=== PATIENT | male | born 1955 | race Caucasian/White ===

== ENCOUNTER 2021-10-09 15:25 | Emergency (ER) | payer MEDICARE, SELFPAY ==
--- NOTE | ~2021-10-09 | XR_ITS ---
EXAMINATION: XR chest 2V EXAM DATE: 10/09/2021 15:57 INDICATION: Cough, Fever; hx of parkinson's; smoker. TECHNIQUE: Frontal and lateral projections of the chest obtained and reviewed. Comparison is made to prior examination from 07/22/2019, 02/02/2010. FINDINGS: Implanted pack device with catheter or lead extending cephalad. Sternotomy wires are prese nt without findings to suggest sternal dehiscence. Cervical hardware. Large right epicardial fat pad unchanged compared to 2009. No confluent consolidation, pneumothorax or pleural effusion suspected. M ild thoracic spondylosis. IMPRESSION: no acute cardiopulmonary findings. Reviewed, dictated and finalized at location A. [facility]
[2021-10-09 15:36] VITALS: BP 115/59; PULSE 93; RESP 20; TEMP 36.8; O2SAT 96
--- NOTE | 2021-10-09 15:47 | ED.GENADULT ---
HPI - General Adult General Chief complaint: Extremity Injury, Upper Stated complaint: Shoulder Pain,Shortness of breath,Fever Source: patient Mode of arrival: ambulatory Limitations: no limitations History of Present Illness HPI narrative: 66 y/o male. PMHx MOSHE, Parkinson's Dx. Presents to ED today with acute complaints of nasal congestion, cough, and upper back pain when he coughs for the past 48 hours. Client reports also a subjective fever at home. Denies EDEN, focal weakness. No chest pain, palpitations, dyspnea, edema. No GI upset. He notes no known ill contacts. He is without additional acute c/o illness upon PE. Related Data Home Medications Medication Instructions Recorded Confirmed carbidopa 25 mg-levodopa 100 mg 1.5 tablet PO TID tablet 06/23/21 10/09/21 tablet clonazepam 0.5 mg tablet 0.5 mg PO BID tablet 06/23/21 10/09/21 safinamide 100 mg tablet 100 mg PO DAILY tablet 06/23/21 10/09/21 Allergies Allergy/AdvReac Type Severity Reaction Status Date / Time bee pollen Allergy Unknown Unknown Verified 10/09/21 15:42 Review of Systems Review of Systems: CONSTITUTIONAL: Positive fever, chills. No sweats. EYES: Denies visual changes, redness, discharge. ENT: Positive rhinorrhea, congestion. No sore throat, otalgia. CARDIOVASCULAR: Denies chest pain, palpitations, edema. RESPIRATORY: Denies dyspnea, wheezing. Positive cough GASTROINTESTINAL: Denies abdominal pain, nausea, vomiting, diarrhea. GENITOURINARY: Denies dysuria, hematuria, abnormal discharge SKIN: Denies rash or itching. MUSCULOSKELETAL: Denies acute back pain, joint pain, or myalgia. NEUROLOGIC: Denies numbness, or focal weakness. PSYCHIATRIC: Denies anxiety or depression. All systems reviewed & are unremarkable except as noted in HPI and below [facility] Past Medical History Medical History BPH w/o urinary obs/LUTS CAD in [place] artery Dyslipidemia Parkinsons disease Prediabetes Family History Family History Other Diabetes mellitus Family history of coronary artery disease Hypertension Social History Social History Smoking status: Current every day smoker Alcohol intake: current Exam Narrative: GENERAL: This is a well-nourished, well-developed adult, in no apparent distress. HEAD: normocephalic, atraumatic. EYES: PERRL. Sclera clear/white. EARS: External ears normal, auditory canals clear and without drainage, TMs normal. NOSE: External nose normal. Positive Rhinorrhea, PND. No obstruction, nares patent. THROAT: Mucous membranes moist, posterior pharynx clear. No exudates. NECK: Neck supple, non-tender without lymphadenopathy, masses or thyromegaly. CARDIOVASCULAR: Regular rate and rhythm without murmurs, gallops, or rubs. RESPIRATORY: Clear to auscultation. Breath sounds equal bilaterally. No wheezes, rales, or rhonchi. GASTROINTESTINAL: Abdomen soft, non-tender, nondistended. Bowel sounds are active. No guarding. SKIN: warm, intact with no suspicious lesions or rash, good texture and turgor. NEURO: Alert, active, and age appropriate. Parkinsonism tremor. No focal neurologic deficits. EXTREMITIES: Negative. Course Course Level of Care: Express Care Visit Vital Signs Vital signs: Vital Signs Temperature 36.8 C 10/09/21 15:36 Pulse Rate 93 10/09/21 15:36 Respiratory Rate 10/09/21 15:36 Blood Pressure 115/59 L 10/09/21 15:36 Pulse Oximetry 96 10/09/21 15:36 Temperature 36.8 C 10/09/21 15:36 Pulse Rate 93 10/09/21 15:36 Respiratory Rate 10/09/21 15:36 Blood Pressure 115/59 L 10/09/21 15:36 Pulse Oximetry 96 10/09/21 15:36 Medical Decision Making [facility] Narrative Medical decision making narrative: -SARS COVID POSITIVE. -Plain film chest imaging reveals no acute cardiopulmonary processes, no ap
== END 2021-10-09 16:29 | disposition home or self-care (01) ==
PROVIDERS: Emergency Provider Nurse Practitioner Adult Health; PCP Family Medicine
DX: U07.1 COVID-19 (principal); G20 Parkinson's disease; I25.10 Atherosclerotic heart disease of native coronary artery without angina pectoris; N40.0 Benign prostatic hyperplasia without lower urinary tract symptoms; E78.5 Hyperlipidemia, unspecified; R73.03 Prediabetes; F17.200 Nicotine dependence, unspecified, uncomplicated; F41.1 Generalized anxiety disorder
CPT/HCPCS: 71046; 87426; 99213; C9803; G0463

== ENCOUNTER 2022-11-19 13:33 | Emergency (ER) | payer MEDICARE, SELFPAY ==
--- NOTE | ~2022-11-19 | XR_ITS ---
XR cervical spine 4-5V 11/19/2022 14:58 Indication: Neck pain Procedure: 5 view cervical spine Comparison: 02/17/2008 Findings: Status post anterior cervical fusion and discectomy at C5-6. No acute fracture, subluxation or dislocation. No prevertebral soft tissue swelling. Odontoid process is normal. Lung apices are normal. There is a right-sided catheter traversing the ne ck. There is mild uncinate hypertrophy at C3-4 and C4-5. Impression: 1: Mild cervical spondylosis with fusion at C5-6. Reviewed, dictated and finalized at location B. [facility] Impression: 1: Mild cervical spondylosis with fusion at C5-6.
[2022-11-19 13:52] VITALS: BP 108/60; PULSE 75; RESP 20; TEMP 36.6; O2SAT 99
--- NOTE | 2022-11-19 14:31 | ED.NECK ---
HPI - Neck Pain/Injury General Chief Complaint: Neck Pain/Injury Stated Complaint: neck pain s/p fall Time Seen by Provider: 11/19/22 14:32 Source: patient and RN notes reviewed Mode of arrival: ambulatory Limitations: no limitations History of Present Illness HPI Narrative: 67 y/o male with hx Parkinson's disease and CAD (CABG) presented for c/o neck pain after fall at home yesterday. Endorses he felt like he 'was going to pass out' so he squatted but 'gravity took over' causing him to fall to the ground. He struck the right side of the head/face on vinyl reece. Denies LOC. States in the middle of the night he developed neck pain at the base of the skull with pain on both sides of the neck. Currently rates pain 4/10. Pain worse when turning head to the side and looking down. Decreased ROM when turning head to left. Took Tylenol for pain. Patient has plate and screws in the neck, and a brain stimulator in place for Parkinson's and reports med compliance. Uses a cane with walking. Denies numbness, tingling or weakness of the arms, denies vision changes or headache, dizziness, nausea, or vomiting since the fall. Related Data Home Medications Medication Instructions Recorded Confirmed carbidopa 25 mg-levodopa 100 mg 1.5 tablet PO TID 06/23/21 11/19/22 tablet clonazepam 0.5 mg tablet 0.5 mg PO BID 06/23/21 11/19/22 safinamide 100 mg tablet 100 mg PO DAILY 06/23/21 11/19/22 Allergies Allergy/AdvReac Type Severity Reaction Status Date / Time bee pollen Allergy Unknown Unknown Verified 11/19/22 14:02 Review of Systems Review of Systems: CONSTITUTIONAL: Denies body aches, fever, chills, or sweats. EYES: Denies visual changes, redness, or discharge. ENT: Denies rhinorrhea, or epistaxis, congestion, sore throat, or otalgia. CARDIOVASCULAR: Denies chest pain, palpitations, or edema. RESPIRATORY: Denies cough or dyspnea. GASTROINTESTINAL: Denies abdominal pain, nausea, vomiting, or diarrhea. GENITOURINARY: Denies incontinence, dysuria or hematuria. SKIN: Denies rash, itching, or wounds. MUSCULOSKELETAL: per HPI NEUROLOGIC: denies numbness, tingling, or weakness All systems reviewed & are unremarkable except as noted in HPI and below PMF[facility] Past Medical History Medical History BPH w/o urinary obs/LUTS CAD in [place] artery Dyslipidemia Parkinsons disease Prediabetes Family History Family History Other Diabetes mellitus Family history of coronary artery disease Hypertension Social History Social History Smoking status: Current every day smoker Alcohol intake: current Comments At time of signature, I have reviewed and agree with nursing past medical, surgical, social and family history unless otherwise noted. Please see nursing chart for further information. There is no relevant family history pertinent to the presenting complaint Exam Narrative: GENERAL: Well-appearing, appears older than stated age HEAD: Normocephalic, atraumatic, nontender; right temporal brain stim EYES: PERRLA, EOMI. ENT: Mucous membranes pink and moist. No rhinorrhea. TMs normal bilaterally. NECK: Limited ROM turning head to left, endorses more pain on left upper neck with movement; paraspinal tenderness L>R at c3-4, no VPT. CHEST: No respiratory distress. Clear to auscultation. HEART: Regular rate and rhythm. No murmur appreciated. Normal peripheral pulses. EXTREMITIES: Normal range of motion for pt. SKIN: Warm, dry, no rash. Capillary refill normal. Normal skin turgor. NEURO:No focal deficits. Alert and oriented x3. Finger to nose intact bilaterally. EOMs intact without nystagmus. No facial droop/asymmetry noted bilaterally. Grimace intact. Intact sensation in face. Hearing intact bilaterally. Shoulder shrug intact. Strength 5/5 bilateral upper extremities.
== END 2022-11-19 15:27 | disposition left against medical advice (07) ==
PROVIDERS: Emergency Provider Nurse Practitioner Family; PCP Family Medicine
DX: M54.2 Cervicalgia (principal); F17.200 Nicotine dependence, unspecified, uncomplicated; N40.0 Benign prostatic hyperplasia without lower urinary tract symptoms; E78.5 Hyperlipidemia, unspecified; G20 Parkinson's disease; R73.03 Prediabetes; I25.10 Atherosclerotic heart disease of native coronary artery without angina pectoris
CPT/HCPCS: 72050; 99213; G0463; L0140

== ENCOUNTER 2023-01-10 11:43 | Outpatient (CLI) | payer MEDICARE, SELFPAY ==
[2023-01-10 18:44] LABS: Kit Draw Collected
== END 2023-01-10 11:44 | disposition home or self-care (01) ==
LOC: ANHGOSHLAB 11:45
PROVIDERS: PCP Family Medicine; Visit Provider Family Medicine
DX: E53.8 Deficiency of other specified B group vitamins (principal); E55.9 Vitamin D deficiency, unspecified; E78.5 Hyperlipidemia, unspecified; G20 Parkinson's disease; I25.10 Atherosclerotic heart disease of native coronary artery without angina pectoris; R41.89 Other symptoms and signs involving cognitive functions and awareness; R73.03 Prediabetes; Z12.5 Encounter for screening for malignant neoplasm of prostate
CPT/HCPCS: 36415

== ENCOUNTER 2023-04-13 15:06 | Emergency (ER) | payer MEDICARE, SELFPAY ==
--- NOTE | ~2023-04-13 | XR_ITS ---
EXAMINATION: XR shoulder RT min 2V DATE: 04/13/2023 16:39 INDICATION: Right shoulder pain. Fall. TECHNIQUE: 4 views of right shoulder were obtained. COMPARISON: None. FINDINGS: Bone alignment is normal. No fracture. There is mild osteoarthritis of acromioclavicular peter int and glenohumeral joint. There are changes of anterior fusion procedure in cervical spine. Median sternotomy wires and mediastinal surgical clips are seen, likely from prior coronary artery bypass gr afting. IMPRESSION: 1. Mild polyarticular osteoarthritis. Reviewed, dictated and finalized at location E.
--- NOTE | ~2023-04-13 | CT_ITS ---
EXAMINATION: CT brain wo con DATE: 04/13/2023 16:34 INDICATION: Head injury. Neck pain. TECHNIQUE: Computed tomography (CT) of the head was performed without intravenous contrast. The mA wa s adjusted according to patient size. Iterative reconstruction technique was employed. The dose-lengt h product was 605.33 mGy-cm. COMPARISON: Brain MRI 02/16/2016 FINDINGS: There is a right-sided electrode with tip in the thalamus. There is no intracranial hemorrh age, acute infarction, or abnormal intracranial mass lesion. The ventricles are normal in size. The o rbits are normal. There is mild mucosal thickening in the ethmoid sinuses. The mastoid air cells are normal. IMPRESSION: 1. No acute intracranial pathology. Reviewed, dictated and finalized at location E.
--- NOTE | ~2023-04-13 | XR_ITS ---
EXAMINATION: XR chest 1V DATE: 04/13/2023 16:39 INDICATION: Right lateral chest pain. Fall. TECHNIQUE: A single frontal view of the chest was obtained. COMPARISON: Chest 2 views 10/09/2021 FINDINGS: There is mild atelectasis in the lower lung zones. No pleural effusion or pneumothorax. The heart size is normal. Median sternotomy wires and mediastinal surgical clips are seen, likely from p rior coronary artery bypass grafting. There are changes of anterior fusion procedures cervical spine. A deep brain stimulator overlies left chest IMPRESSION: 1. Mild atelectasis in the lower lung zones. Reviewed, dictated and finalized at location E.
--- NOTE | ~2023-04-13 | CT_ITS ---
EXAMINATION: CT cervical spine wo con DATE: 04/13/2023 16:34 INDICATION: Neck pain. Fall. TECHNIQUE: Computed tomography (CT) of the cervical spine was performed without intravenous contrast. Automated exposure control and iterative reconstruction technique were employed. The dose-length pro duct was 292.92 mGy-cm. COMPARISON: Cervical spine radiographs 11/19/2022 FINDINGS: There is hypolordosis of cervical spine. There is 3 mm dextrocurvature of cervical spine. V ertebral body heights are normal. There are changes of anterior fusion procedure at C5-C6 with interb tosin bone graft and anterior plate and screws. There is moderately decreased disc height at C3-C4 and mildly decreased disc height at C4-C5 and C6-C7. The following disc levels are specifically discussed : C2-C3: There is no uncovertebral joint osteoarthritis. There is moderate right and mild left facet peter int osteoarthritis. There is no neural foraminal stenosis. There is no central canal stenosis. C3-C4: There is moderate right and severe left uncovertebral joint osteoarthritis. There is mild righ t and severe left facet joint osteoarthritis. There is mild right and moderate left neural foraminal stenosis. There is mild central canal stenosis. C4-C5: There is severe right and mild left uncovertebral joint osteoarthritis. There is mild right an d severe left facet joint osteoarthritis. There is mild bilateral neural foraminal stenosis. There is mild central canal stenosis. C5-C6: There is no uncovertebral joint hypertrophy. There is no facet joint osteoarthritis. There is no neural foraminal stenosis. There is no central canal stenosis. C6-C7: There is no uncovertebral joint osteoarthritis. There is mild bilateral facet joint osteoarthr itis. There is no neural foraminal stenosis. There is mild central canal stenosis. C7-T1: There is no uncovertebral joint osteoarthritis. There is mild bilateral facet joint osteoarthr itis. There is no neural foraminal stenosis. There is no central canal stenosis. IMPRESSION: 1. No fracture. 2. Anterior fusion procedure at C5-C6. 3. Moderate cervical spondylosis. Reviewed, dictated and finalized at location E.
[2023-04-13 15:15] VITALS: BP 113/80; PULSE 77; RESP 17; TEMP 36.5; O2SAT 96
--- NOTE | 2023-04-13 16:26 | ED.GENADULT ---
HPI - General Adult General Chief complaint: Extremity Injury, Upper Stated complaint: mx falls-R shlder inj Time Seen by Provider: 04/13/23 15:37 History of Present Illness HPI narrative: 67-year-old male with history of Parkinson's disease presenting to the emergency department for evaluation of right shoulder pain. Patient reports approximately 2 weeks ago he had a ground-level fall and injured his left shoulder and that this only hurt for a few days. Patient states he did strike his head during that fall. Patient reports a week later he had a another fall due to what he describes as orthostatic hypotension, he stood up quickly had onset of lightheadedness and fell to the ground and struck his head. Patient reports over the last few days he has had increased muscular right shoulder pain and patient denies any falls since last week. Patient has taken Tylenol for pain control but this has not significantly helped him. Related Data Home Medications Medication Instructions Recorded Confirmed carbidopa 25 mg-levodopa 100 mg 1.5 tablet PO TID 06/23/21 01/24/23 tablet clonazepam 0.5 mg tablet 0.5 mg PO BID 06/23/21 01/24/23 safinamide 100 mg tablet 100 mg PO HS 06/23/21 01/24/23 Allergies Allergy/AdvReac Type Severity Reaction Status Date / Time bee pollen Allergy Unknown Unknown Verified 04/13/23 15:17 Review of Systems Review of Systems: All systems reviewed & are unremarkable except as noted in HPI and below PMFSH Past Medical History Medical History BPH w/o urinary obs/LUTS CAD in [place] artery COVID-19 (~09/2021) Dyslipidemia Parkinsons disease Prediabetes Vitamin D deficiency Surgical History Surgical History History of cervical spinal surgery (~2006) History of coronary artery bypass graft (~2009) History of elbow surgery (~1999) right elbow surgery for ruptured tendon repair History of foot surgery (~2005) Right for bone spur excision History of tonsillectomy (~1959) S/P deep brain stimulator placement (~2018) Family History Family History Other Diabetes mellitus Family history of coronary artery disease Hypertension Social History Social History Smoking status: Current every day smoker Tobacco type: cigarettes Alcohol intake: current Alcohol use details: seldom Substance use: never Substance use type: does not use Lack of Transportation: YES Lack of Food: Never True Current Housing: I Have Housing Concerned About Future Housing: No Difficulty Paying Gas/Electric Bills: No Difficulty Paying for Meds: No Currently Unemployed: No Education: Trade/Vocational Certificate Difficulty w/ Childcare or Family Care: No Living arrangements: with family Occupation/Education: retired Gender identity (if verbalized by the patient): Male Agree to blood products: Yes Exam Narrative: APPEARANCE: Well appearing, no pain, no distress, well-nourished. HEAD: normocephalic, atraumatic. EYES: PERRLA/EOMI, conjunctivae clear. NOSE: Normal no drainage EARS:TMS clear with good light reflex. THROAT: Pharynx clear, no exudate. NECK: Supple. No adenopathy, no masses. RESPIRATORY: Airway patent, respirations nonlabored. Clear to auscultation bilaterally, no rales, rhonchi, wheezing. CARDIOVASCULAR: Regular rate and rhythm without murmurs rubs or gallops. ABDOMINAL: Soft, nontender, nondistended, normal bowel sounds MUSCULOSKELETAL: Reproducible muscular tenderness along the right scapula NEURO: Alert. Cranial nerves II through XII intact. Grossly intact SKIN: Warm, dry. Normal Color Course Course Emergency Course: 67-year-old male presented the ED for evaluation of right shoulder pain. X-rays were negative for acute fracture. CT head and ne
[2023-04-13] MEDS: KETOROLAC 15 MG/ML VIAL (*BKC) IV PUSH (16:54)
[2023-04-13] MEDS: CYCLOBENZAPRINE HCL 10 MG TABLET PO (16:54)
[2023-04-13 18:00] VITALS: BP 108/63; PULSE 69; O2SAT 99
== END 2023-04-13 19:07 | disposition home or self-care (01) ==
PROVIDERS: Emergency Provider Emergency Medicine; PCP Family Medicine
DX: M25.511 Pain in right shoulder (principal); I25.10 Atherosclerotic heart disease of native coronary artery without angina pectoris; E78.5 Hyperlipidemia, unspecified; G20 Parkinson's disease; F17.210 Nicotine dependence, cigarettes, uncomplicated
CPT/HCPCS: 70450; 71045; 72125; 73030; 96374; 99284; A9270; J1885

== ENCOUNTER 2023-04-17 15:25 | Emergency (ER) | payer MEDICARE, SELFPAY ==
--- NOTE | ~2023-04-17 | CT_ITS ---
EXAMINATION: CT cervical spine wo con DATE: 04/17/2023 16:10 INDICATION: Neck injury. TECHNIQUE: Computed tomography (CT) of the cervical spine was performed without intravenous contrast. Automated exposure control and iterative reconstruction technique were employed. The dose-length pro duct was 439.75 mGy-cm. COMPARISON: Cervical spine CT 04/13/2023 FINDINGS: There is hypolordosis of cervical spine. There is 3 mm dextrocurvature of cervical spine. V ertebral body heights are normal. There are changes of anterior fusion procedure at C5-C6 with interb tosin bone graft and anterior plate and screws. There is moderately decreased disc height at C3-C4 and mildly decreased disc height at C4-C5 and C6-C7. The following disc levels are specifically discussed : C2-C3: There is no uncovertebral joint osteoarthritis. There is moderate right and mild left facet peter int osteoarthritis. There is no neural foraminal stenosis. There is no central canal stenosis. C3-C4: There is moderate right and severe left uncovertebral joint osteoarthritis. There is mild righ t and severe left facet joint osteoarthritis. There is mild right and moderate left neural foraminal stenosis. There is mild central canal stenosis. C4-C5: There is severe right and mild left uncovertebral joint osteoarthritis. There is mild right an d severe left facet joint osteoarthritis. There is mild bilateral neural foraminal stenosis. There is mild central canal stenosis. C5-C6: There is no uncovertebral joint hypertrophy. There is no facet joint osteoarthritis. There is no neural foraminal stenosis. There is no central canal stenosis. C6-C7: There is no uncovertebral joint osteoarthritis. There is mild bilateral facet joint osteoarthr itis. There is no neural foraminal stenosis. There is mild central canal stenosis. C7-T1: There is no uncovertebral joint osteoarthritis. There is mild bilateral facet joint osteoarthr itis. There is no neural foraminal stenosis. There is no central canal stenosis. IMPRESSION: 1. No fracture. 2. Anterior fusion procedure at C5-C6. 3. Moderate cervical spondylosis. Reviewed, dictated and finalized at location A.
--- NOTE | ~2023-04-17 | XR_ITS ---
XR knee LT 3V DATE: 04/17/2023 16:22 INDICATION: Ground-level fall. Left knee injury, pain TECHNIQUE: 3 views including crosstable lateral COMPARISON: None FINDINGS: No fracture or dislocation or joint effusion. No periosteal reaction or bone destruction. N o radiopaque intra-articular loose body or chondrocalcinosis. Joint spaces are well preserved. Surgical clips are along the medial aspect of the upper and lower leg. Arterial calcifications. IMPRESSION: No fracture, dislocation or joint effusion Reviewed, dictated and finalized at location B.
--- NOTE | ~2023-04-17 | XR_ITS ---
EXAMINATION: XR clavicle LT DATE: 04/17/2023 16:22 INDICATION: Left clavicle pain. TECHNIQUE: 2 views of left clavicle were obtained. COMPARISON: Left shoulder radiograph 03/08/2006 FINDINGS: There is a comminuted fracture of distal left clavicle. The main distal fracture fragment d emonstrates near-anatomic alignment. There is mild osteoarthritis of acromioclavicular joint. An elec tronic device overlies left chest. Median sternotomy wires and mediastinal surgical clips are seen, l ikely from prior coronary artery bypass grafting. There are changes of anterior fusion procedure in c ervical spine. IMPRESSION: 1. Comminuted fracture of distal left clavicle. Reviewed, dictated and finalized at location A.
[2023-04-17 15:32] VITALS: BP 137/100; PULSE 83; RESP 19; TEMP 37.1; O2SAT 98
[2023-04-17] MEDS: HYDROcodone/acetaminophen (*CRX) 5-325 MG TABLET 1 TAB PO (16:24)
--- NOTE | 2023-04-17 17:37 | ED.FALL ---
HPI - Fall General Chief Complaint: Fall Stated Complaint: fall Time Seen by Provider: 04/17/23 15:46 History of Present Illness HPI Narrative: Patient is a 67-year-old male who presents ER status post fall. Reports he was walking when he stepped his toe falling forwards. He did not strike his head or lose consciousness. He fell on his left side injuring his shoulder as well as his knee and ankle. He was not walking with a cane though it has been recommended he should. Denies any acute injury. No additional concerns. Related Data Home Medications Medication Instructions Recorded Confirmed carbidopa 25 mg-levodopa 100 mg 1.5 tablet PO TID 06/23/21 01/24/23 tablet clonazepam 0.5 mg tablet 0.5 mg PO BID 06/23/21 01/24/23 safinamide 100 mg tablet 100 mg PO HS 06/23/21 01/24/23 Allergies Allergy/AdvReac Type Severity Reaction Status Date / Time bee pollen Allergy Unknown Unknown Verified 04/13/23 15:17 [facility] Past Medical History Medical History BPH w/o urinary obs/LUTS CAD in [place] artery COVID-19 (~09/2021) Dyslipidemia Parkinsons disease Prediabetes Vitamin D deficiency Surgical History Surgical History History of cervical spinal surgery (~2006) History of coronary artery bypass graft (~2009) History of elbow surgery (~1999) right elbow surgery for ruptured tendon repair History of foot surgery (~2005) Right for bone spur excision History of tonsillectomy (~1959) S/P deep brain stimulator placement (~2018) Family History Family History Other Diabetes mellitus Family history of coronary artery disease Hypertension Social History Social History Smoking status: Current every day smoker Tobacco type: cigarettes Alcohol intake: current Alcohol use details: seldom Substance use: never Substance use type: does not use Lack of Transportation: YES Lack of Food: Never True Current Housing: I Have Housing Concerned About Future Housing: No Difficulty Paying Gas/Electric Bills: No Difficulty Paying for Meds: No Currently Unemployed: No Education: Trade/Vocational Certificate Difficulty w/ Childcare or Family Care: No Living arrangements: with family Occupation/Education: retired Gender identity (if verbalized by the patient): Male Agree to blood products: Yes Exam Narrative: GENERAL: Well-appearing, well-nourished, and in no acute distress. HEAD: Normocephalic, atraumatic. EYES: PERRL and EOMI. ENT: Mucous membranes moist. NECK: Supple. Mild tenderness left paraspinal muscular region extending into the trapezius on the left side. CHEST: Clear to auscultation. No respiratory distress. Tender palpation over the clavicle laterally. HEART: Regular rate and rhythm. Normal peripheral pulses. ABDOMEN: Soft, nontender, nondistended. EXTREMITIES: Normal range of motion. No edema. SKIN: Warm, dry, no rash. Abrasion of the left knee and ankle. NEURO: Alert and oriented x3. PSYCH: Normal mood and affect. Course Course Emergency Course: Patient resting comfortably. Informed of results. Will be placed in a sling for comfort. Discharge home. Vital Signs Vital signs: Vital Signs Temperature 98.7 F 04/17/23 15:32 Pulse Rate 83 04/17/23 15:32 Respiratory Rate 04/17/23 15:32 Blood Pressure 137/100 H 04/17/23 15:32 Pulse Oximetry 98 04/17/23 15:32 Oxygen Delivery Room Air 04/17/23 15:32 Temperature 98.7 F 04/17/23 15:32 Pulse Rate 83 04/17/23 15:32 Respiratory Rate 04/17/23 15:32 Blood Pressure 137/100 H 04/17/23 15:32 Pulse Oximetry 98 04/17/23 15:32 Oxygen Delivery Room Air 04/17/23 15:32 Discharge Plan Discharge Clinical Impression: Clavicle fracture Patient Dispositi
== END 2023-04-17 17:59 | disposition home or self-care (01) ==
PROVIDERS: Emergency Provider Emergency Medicine; PCP Family Medicine
DX: S42.032A Displaced fracture of lateral end of left clavicle, initial encounter for closed fracture (principal); I25.10 Atherosclerotic heart disease of native coronary artery without angina pectoris; G20 Parkinson's disease; E78.5 Hyperlipidemia, unspecified; N40.0 Benign prostatic hyperplasia without lower urinary tract symptoms; R73.03 Prediabetes; E55.9 Vitamin D deficiency, unspecified; F17.210 Nicotine dependence, cigarettes, uncomplicated; Z95.1 Presence of aortocoronary bypass graft; Z96.82 Presence of neurostimulator; Z86.16 Personal history of COVID-19; W10.9XXA Fall (on) (from) unspecified stairs and steps, initial encounter
CPT/HCPCS: 72125; 73000; 73562; 99284; A4565; A9270

== ENCOUNTER → 2023-05-28 10:49 | Outpatient (CLI) | payer MEDICARE, SELFPAY ==
--- NOTE | ~2023-05-28 | XR_ITS ---
XR clavicle LT DATE: 05/28/2023 11:09 INDICATION: Follow-up of clavicle fracture TECHNIQUE: AP and angled AP views COMPARISON: 04/17/2023 left clavicle FINDINGS: Mildly comminuted fracture of the lateral aspect of the left clavicle is noted with mild la teral displacement of the lateral fragment compared to 04/17/2023. No healing new bone formation is id entified radiographically. Normal alignment at the acromioclavicular and glenohumeral joints. Status post lower anterior cervical spine surgical fusion. Status post sternotomy. IMPRESSION: Minimally displaced lateral left clavicle fracture without radiographically detectable he aling new bone formation Reviewed, dictated and finalized at location L. IMPRESSION: Minimally displaced lateral left clavicle fracture without radiogra phically detectable healing new bone formation
== END ==
PROVIDERS: PCP Family Medicine; Visit Provider Nurse Practitioner Family
DX: S42.032D Displaced fracture of lateral end of left clavicle, subsequent encounter for fracture with routine healing (principal); T14.90XD Injury, unspecified, subsequent encounter
CPT/HCPCS: 73000

== ENCOUNTER 2023-07-10 09:59 | Outpatient (CLI) | payer MEDICARE, SELFPAY ==
[2023-07-10 20:00] LABS: Alanine Aminotransferase 7 U/L (6-50); Albumin Level 4.1 g/dL (3.5-5.1); Alkaline Phosphatase 79 U/L (38-126); Anion Gap 4 mmol/L (8-16); Aspartate Amino Transferase 27 U/L (17-59); Bilirubin,Total 0.7 mg/dL (0.2-1.3); Blood Urea Nitrogen 23 mg/dL (9-20); Calcium 9.2 mg/dL (8.4-10.2); Carbon Dioxide 33 mmol/L (22-30); Chloride 101 mmol/L (98-107); Estimated Glomerular Filt Rate > 60; Glucose 112 mg/dL (65-110); Potassium 4.3 mmol/L (3.4-5.0); Sodium 138 mmol/L (137-145)
[2023-07-10 21:56] LABS: Hemoglobin A1C 5.5 % (<5.7)
== END 2023-07-10 10:00 | disposition home or self-care (01) ==
PROVIDERS: PCP Family Medicine; Visit Provider Family Medicine
DX: I25.10 Atherosclerotic heart disease of native coronary artery without angina pectoris (principal); R73.03 Prediabetes; I10 Essential (primary) hypertension; G20.A1 Parkinson's disease without dyskinesia, without mention of fluctuations
CPT/HCPCS: 36415; 80053; 83036

== ENCOUNTER 2024-01-03 07:54 | Outpatient (CLI) | payer MEDICARE, SELFPAY ==
--- NOTE | ~2024-01-03 | CT_ITS ---
EXAMINATION: CT lung screening DATE: 01/03/2024 08:17 INDICATION: Z87.891 - Personal history of nicotine dependence TECHNIQUE: Computed tomography (CT) of the chest was performed without intravenous contrast. Addition al 3D reconstructions utilizing coronal maximum intensity projection (MIP) were performed. Automated exposure control and iterative reconstruction technique were employed. The dose-length product was 82 .29 mGy-cm. COMPARISON: None FINDINGS: Mild discoid atelectasis in lingula. Reticular pattern of mild dependent atelectasis in bilateral low er lobes. Couple small calcified nodules in the bilateral upper lobes along with calcified right christine r and mediastinal lymph nodes and scattered splenic calcifications, all consistent with old granuloma tous disease. No other suspicious pulmonary nodules, pneumonia, pulmonary edema or other pulmonary in filtrates. Heart size is normal. Atherosclerotic coronary artery calcifications. Median sternotomy an d change of prior coronary artery bypass grafting. No pathologically enlarged thoracic lymphadenopath y. Likely vagal stimulator the left pectoral region with lead extending cephalad into the anterior ri ght neck and beyond the cephalad margin of the field of imaging. Mild bilateral gynecomastia. Mild th oracic spondylosis. IMPRESSION: 1. Lung-RADS category 1: Negative. Continue annual screening with noncontrast low-dose chest CT in 12 months. Reviewed, dictated and finalized at location A. IMPRESSION: 1. Lung-RADS category 1: Negative. Continue annual screening with noncontrast l ow-dose chest CT in 12 months.
--- NOTE | ~2024-01-03 | US_ITS ---
EXAMINATION: US aorta [facility] DATE: 01/03/2024 08:43 INDICATION: Abdominal aortic aneurysm screening TECHNIQUE: Grayscale, color Doppler, and pulsed Doppler images of the aorta and common iliac arteries were obtained. COMPARISON: None. FINDINGS: The proximal aorta measures 1.7 cm. The mid aorta measures 1.8 cm. The distal aorta measures 1.8 cm. The bilateral common iliac arteries are obscured by shadowing bowel gas. IMPRESSION: 1. Normal caliber abdominal aorta. Reviewed, dictated and finalized at location A.
== END 2024-01-03 07:55 ==
LOC: GOSHIMG 07:54
PROVIDERS: PCP Family Medicine; Visit Provider Family Medicine
DX: Z12.2 Encounter for screening for malignant neoplasm of respiratory organs (principal); Z87.891 Personal history of nicotine dependence; Z13.6 Encounter for screening for cardiovascular disorders
CPT/HCPCS: 71271; 76706

== ENCOUNTER 2024-01-03 08:19 | Outpatient (CLI) | payer MEDICARE, SELFPAY ==
[2024-01-03 13:26] LABS: Basophils Absolute Auto 0.1 K/mm3 (0.0-0.1); Basophils Percent Auto 0.9 % (0.2-1.2); Eosinophils Absolute Auto 0.3 K/mm3 (0-0.3); Eosinophils Percent Auto 2.9 % (0-4.4); Hematocrit 50.7 % (42.0-52.0); Hemoglobin 16.1 g/dL (14.0-18.0); Immature Granulocyte Absolute 0.04 K/mm3 (0.00-0.031); Immature Granulocyte Percent A 0.4 % (0-0.5); Lymphocytes Absolute Auto 3.12 K/mm3 (0.9-3.2); Lymphocytes Percent Auto 34.5 % (18.3-44.2); Mean Corpuscular HGB Conc 31.8 g/dl (32-36); Mean Corpuscular Hemoglobin 32.4 pg (26-34); Mean Platelet Volume 12.9 fl (7.4-10.4); Monocytes Absolute Auto 0.7 K/mm3 (0.1-0.6); Monocytes Percent Auto 7.8 % (2.6-8.5); Neutrophils Absolute Auto 4.8 K/mm3 (1.3-6.7); Neutrophils Percent Auto 53.5 % (45.5-73.1); Platelet Count Result 153 k/mm3 (150-375); Red Blood Count 4.97 M/mm3 (4.6-6.20); White Blood Count 9.1 K/mm3 (4.5-10.0)
[2024-01-03 13:37] LABS: Alanine Aminotransferase 7 U/L (6-50); Albumin Level 4.2 g/dL (3.5-5.1); Alkaline Phosphatase 82 U/L (38-126); Anion Gap 6 mmol/L (4-12); Aspartate Amino Transferase 46 U/L (17-59); Bilirubin,Total 0.5 mg/dL (0.2-1.3); Blood Urea Nitrogen 27 mg/dL (9-20); Calcium 9.6 mg/dL (8.4-10.2); Carbon Dioxide 31 mmol/L (22-30); Chloride 102 mmol/L (98-107); Cholesterol 121 mg/dL (0-200); Estimated Glomerular Filt Rate 60; Glucose 102 mg/dL (65-110); HDL Direct 37 mg/dL; Potassium 4.1 mmol/L (3.4-5.0); Sodium 139 mmol/L (137-145); Triglycerides 43 mg/dL (<150)
[2024-01-03 13:47] LABS: LDL Cholesterol Direct 77 mg/dL
[2024-01-03 13:59] LABS: Hemoglobin A1C 5.6 % (<5.7)
[2024-01-03 14:00] LABS: Prostate Specific Antigen 0.8 ng/mL (< OR = 4.0)
[2024-01-03 14:06] LABS: Atypical Lymphocytes Present; Platelet Estimate Adequate (Adequate); Schistocytes None Seen
[2024-01-03 14:50] LABS: Vitamin D 25 Hydroxy 72.7 ng/mL
== END 2024-01-03 08:20 | disposition home or self-care (01) ==
LOC: ANHGOSHLAB 08:20
PROVIDERS: PCP Family Medicine; Visit Provider Family Medicine
DX: G20.B1 Parkinson's disease with dyskinesia, without mention of fluctuations (principal); E78.5 Hyperlipidemia, unspecified; I10 Essential (primary) hypertension; R73.03 Prediabetes; Z12.5 Encounter for screening for malignant neoplasm of prostate; E53.8 Deficiency of other specified B group vitamins; E55.9 Vitamin D deficiency, unspecified
CPT/HCPCS: 36415; 80053; 80061; 82306; 82607; 83036; 84153; 84443; 85025; G0103

== ENCOUNTER 2024-06-15 10:00 | Outpatient (CLI) | payer MEDICARE, SELFPAY ==
[2024-06-15 13:16] LABS: Alanine Aminotransferase 6 U/L (6-50); Alkaline Phosphatase 93 U/L (38-126); Anion Gap 7 mmol/L (4-12); Aspartate Amino Transferase 39 U/L (17-59); Bilirubin,Total 0.6 mg/dL (0.2-1.3); Blood Urea Nitrogen 24 mg/dL (9-20); Calcium 9.1 mg/dL (8.4-10.2); Carbon Dioxide 33 mmol/L (22-30); Chloride 101 mmol/L (98-107); Estimated Glomerular Filt Rate > 60; Glucose 106 mg/dL (65-110); Potassium 4.7 mmol/L (3.4-5.0); Sodium 141 mmol/L (137-145)
[2024-06-15 13:29] LABS: Vitamin D 25 Hydroxy 67.7 ng/mL
[2024-06-15 19:53] LABS: Hemoglobin A1C 5.9 % (<5.7)
== END 2024-06-15 10:01 | disposition home or self-care (01) ==
PROVIDERS: PCP Family Medicine; Visit Provider Family Medicine
DX: R73.9 Hyperglycemia, unspecified (principal); I10 Essential (primary) hypertension; E55.9 Vitamin D deficiency, unspecified
CPT/HCPCS: 36415; 80053; 82306; 83036

== ENCOUNTER 2024-12-31 13:52 | Outpatient (CLI) | payer MEDICARE, SELFPAY ==
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
--- OUTSIDE RECORDS SUMMARY | 2024-12-31 14:15 | XMS_ITS | Encounter Summary ---
Author Organization [facility] Address [address] [place] [address] Care Team Providers Care Oral Surgery Assistant Name Role Phone Pato Alexander MD Primary Care Provider Reason for Visit * Reason Onset Date Comments MEDICATION REFILL 11/14/2023 Encounter Details Date Type Department Care Team (Late st Contact Info) Description 11/14/2023 Refill [facility] - Neurology [address] [place] [phone] Ladarius Lion MD MEDICATION REFILL Social History Tobacco Use Types Packs/Day Years Used Date Smoking Tobacco: Former Cigarettes Q uit: 06/02/2018 Smokeless Tobacco: Never Alcohol Use Standard Drinks/Week Comments Yes 0 (1 standard drink = 0.6 oz pur e alcohol) Social Sex and Gender Information Value Date Recorded Sex Assigned at Not on file Gender Identity Not on file Sexual Orientation Not on file documented as of this encounter Functional Status Functional Status Response Date of Assess ment Is person deaf or have serious hearing difficult y? No 06/18/2019 Is person blind or have serious difficulty seein g? No 06/18/2019 Does person have serious dif ficulty walking/climbing stairs? No 06/18/2019 Does person have difficulty dressing/bathing? No 06/18/2019 Does person have difficulty doing errands alone? No 06/18/2019 Cognitive Status Response Date of Assessm ent Does person have difficulty concentrating/remembering/making decisions? No 06/18/2019 documented as of this encounter Miscellaneous Notes * Telephone Encounter - Levy Quintana MA - 11/14/2023 3:16 PM CST Refill Request Aureliano Lombardi GIOVANNA: 07/03/2023Jul due: NOV date: 03/10/2024 Rivastigmine 1.5 MG capsule LRF: 07/03/2023 Quantity dispensed: 60 capsules (patient takes 2 capsules daily) # refills: 3 Allergies: No Known Allergies Pended Medication Order: Requested Prescriptions Pending Prescriptions Disp Refills ??? rivastigmine (Exelon) 1.5 MG capsule 60 capsule 3 Sig: Take 1 (one) capsule by mouth 2 times daily with morning and evening meal Reasons: Dementia Associated with Parkinson's Disease OGRAPHS CURATOR documented in this encounter Plan of Treatment Upcoming Encounters Date Type Department Care Team (Late st Contact Info) Description 03/18/2025 1:00 PM CDT Office Visit [facility] - Neurology [address] [place] [address], [facility] [place] [address] Sabrina Jewell APRN-HIGH SCHOOL PROFESSIONAL [address] [place] [address] [place] [address] documented as of this encounter Visit Diagnoses Not on filedocumented in this encounter Care Teams Oral Surgery Assistant Relationship Specialty Start Date End Date Pato Aleaxnder MD [address] [place] [address] PCP - General 04/09/18 documented as of this encounter
--- OUTSIDE RECORDS SUMMARY | 2024-12-31 14:15 | XMS_ITS | Clinical Summary ---
Author Organization [facility] [address] Address [address] [place] [address] Care Team Providers Care Traffic Observer Name Role Phone Pato Alexander MD Primary Care Provider Allergies No known active allergies Medications carbidopa-levod opa CR (SINEMET CR) 50-200 mg per CR tablet take 1 tablet by oral route 2 times every day 0 10/29/2012 Active XADAGO 100 mg tablet 12/19/2017 Active clonazePAM (KlonoPIN) 1 mg tablet 1 tablet (1 mg total) 3 (three) times a day 5 02/01/2019 Active acetaminophen (TYLENOL) 325 mg tablet Take 2 tablets (650 mg total) by mouth every 6 (six) hours as needed for pain Active aspirin 81 mg enteric coated tablet Take 1 tablet (81 mg total) by mouth daily Active atorvastatin (LIPITOR) 20 mg tablet Take 1 tablet (20 mg total) by mouth nightly at bedtime Active pyridoxine (VITAMIN B-6) 100 mg tablet Take 1 tablet (100 mg total) by mouth daily Active cyanocobalamin (Vitamin B-12) 100 mcg tabletIndicatio ns:Prevention of Vitamin B12 Deficiency Take 1 tablet (100 mcg total) by mouth daily Active rivastigmine (EXELON) 3 mg capsule Take 1 capsule (3 mg total) by mouth 2 (two) times a day Active Active Problems Problem Noted Date Diagnosed Date Coronary artery disease invo lving [place] coronary artery of [place] heart without angina pectoris 02/13/2018 Hx of CABG 02/13/2018 Encounters Date Type Department Care Team Description 11/06/2024 3:15 PM SUEDING AND BUFFING MACHINE OPERATOR Office Visit [facility] Cardiology [address] [place] [address] Dick Lima MD Hx of CABG (Primary Dx); Coronary artery disease involving [place] coronary artery of [place] heart without angina pectoris from Last 3 Months Medical History Medical History Date Comments Hypertension Hypertension Chronic obstructive pulmonary disease (HCC) COPD Peripheral vascular disease Poppy pheral vascular disease Family History Medical History Relation Name Comments Heart attack Mother Myocardial Infa rction; Cause of : Myocardial Infarction Heart attack Sister 2 Myocardial Infa rction; Relation Name Status Comments Mother Sister 1 Alive Sister 2 Social History Tobacco Use Types Packs/Day Years Used Date Smoking Tobacco: Every Day Smokeless Tobacco: Never Tobacco Cessation:Ready to Q uit: Not Asked; Counseling Given: Not Answered Comments:Smoking History Packs/day: 0.5 Packs Alcohol Use Standard Drinks/Week Comments No 0 (1 standard drink = 0.6 oz pur e alcohol) Sex and Gender Information Value Date Recorded Sex Assigned at Not on file Legal Sex Male 10:44 PM SUEDING AND BUFFING MACHINE OPERATOR Gender Identity Not on file Sexual Orientation Not on file Obstetrics History Last Filed Vital Signs Vital Sign Reading Time Taken Comments Blood Pressure 120/64 11/06/2024 3:14 PM SUEDING AND BUFFING MACHINE OPERATOR Pulse 94 11/06/2024 3:14 PM SUEDING AND BUFFING MACHINE OPERATOR Temperature - - Respiratory Rate - - Oxygen Saturation 97% 11/06/2024 3:14 PM SUEDING AND BUFFING MACHINE OPERATOR Inhaled Oxygen Concentration - - Weight 70 kg (154 lb 4.8 oz) 11/06/2024 3:14 PM SUEDING AND BUFFING MACHINE OPERATOR Height 175.3 cm (5' 9 ) 11/06/2024 3:14 PM SUEDING AND BUFFING MACHINE OPERATOR Body Mass Index 22.79 11/06/2024 3:14 PM SUEDING AND BUFFING MACHINE OPERATOR Plan of Treatment Health Maintenance Due Date Last Done Comments Colon Cancer Screening-Colonoscopy 1955 Depression Screening 1955 Fall Risk Assessment 1955 Hepatitis C Screening 1955 DTaP/Tdap/Td Vaccine (1 - Tdap) 1964 Hepatitis B Screening 1971 Pneumococcal vaccine 65+ (1 of 2 - PCV) 1972 Zoster Vaccine (1 of 2) 2003 Well Visit 65+ 2018 Influenza Vaccine (#1) 2024 07/28/2018 Abdominal Aortic Aneurysm (AAA) Screen Completed Procedures Procedure Name Priority Date/Time Associated Diagnosis Comments POCT LIPID PANEL Routine 11/06/2024 3:51 PM SUEDING AND BUFFING MACHINE OPERATOR Coronary artery disease involving [place] coronary artery of [place] heart without angina pectoris from Last 3 Months Results * POCT lipid panel (11/06/2024 3:51 PM SUEDING AND BUFFING MACHINE OPERATOR) Cholesterol, POC 118 mg/dL Comment:GLU = 107 HDL, POC 20 mg/dL Triglycerides, POC 226 mg/dL LDL Cholesterol POC 53 mg/dL Chol/HDL Ratio, POC 2.6 Non-HDL Cholesterol, POC 98 mg/dL Cholesterol Total, POC 118 mg/dL Capillary blood 11/06/2024 3 :51 PM SUEDING AND BUFFING MACHINE OPERATOR Dick Lima MD POINT OF CARE TEST ORDER TASH Final Result from Last 3 Months Insurance [facility] MEDICARE Care Teams Traffic Observer Relationship Specialty Start Date End Date Pato Alexander MD PCP - General 07/17/17
--- OUTSIDE RECORDS SUMMARY | 2024-12-31 14:15 | XMS_ITS | Referral Summary ---
Author Organization [facility] [address] Address [address] [place] [address] Care Team Providers Care Curriculum Development Manager Name Role Phone Pato Alexander MD Primary Care Provider Encounters Date Type Department Care Team Description 11/06/2024 3:15 PM TUBE ROOM SUPERVISOR Office Visit [facility] Cardiology [address] [place] [address] Dick Lima MD Hx of CABG (Primary Dx); Coronary artery disease involving [place] coronary artery of [place] heart without angina pectoris from Last 3 Months Allergies No known active allergies Medications carbidopa-levod [...] Diagnosed Date Coronary artery disease invo lving [place] coronary artery of [place] heart without angina pectoris 02/13/2018 Hx of CABG 02/13/2018 Social History Tobacco Use Types Packs/Day Years [...] on file Legal Sex Male 10:44 PM TUBE ROOM SUPERVISOR Gender Identity Not on file Sexual Orientation Not on file Last Filed Vital Signs Vital Sign Reading Time Taken Comments Blood Pressure 120/64 11/06/2024 3:14 PM TUBE ROOM SUPERVISOR Pulse 94 11/06/2024 3:14 PM TUBE ROOM SUPERVISOR Temperature - - Respiratory Rate - - Oxygen Saturation 97% 11/06/2024 3:14 PM TUBE ROOM SUPERVISOR Inhaled Oxygen Concentration - - Weight 70 kg (154 lb 4.8 oz) 11/06/2024 3:14 PM TUBE ROOM SUPERVISOR Height 175.3 cm (5' 9 ) 11/06/2024 3:14 PM TUBE ROOM SUPERVISOR Body Mass Index 22.79 11/06/2024 3:14 PM TUBE ROOM SUPERVISOR Plan of Treatment Not on file Procedures Procedure Name Priority Date/Time Associated Diagnosis Comments POCT LIPID PANEL Routine 11/06/2024 3:51 PM TUBE ROOM SUPERVISOR Coronary artery disease involving [place] coronary artery of [place] heart without angina pectoris from Last 3 Months Results * POCT lipid panel (11/06/2024 3:51 PM TUBE ROOM SUPERVISOR) Cholesterol, POC 118 mg/dL Comment:GLU = 107 HDL, POC 20 mg/dL Triglycerides, POC 226 mg/dL LDL Cholesterol POC 53 mg/dL Chol/HDL Ratio, POC 2.6 Non-HDL Cholesterol, POC 98 mg/dL Cholesterol Total, POC 118 mg/dL Capillary blood 11/06/2024 3 :51 PM TUBE ROOM SUPERVISOR us Dick Lima MD POINT OF CARE TEST ORDER TASH Final Result from Last 3 Months Insurance [employer] MEDICARE Care Teams Curriculum Development Manager Relationship Specialty Start Date End Date Pato Alexander MD PCP - General 07/17/17
[2024-12-31 19:14] LABS: Basophils Percent Auto 0.6 % (0.2-1.2); Eosinophils Absolute Auto 0.2 K/mm3 (0-0.3); Eosinophils Percent Auto 2.4 % (0-4.4); Hematocrit 52.1 % (42.0-52.0); Hemoglobin 16.6 g/dL (14.0-18.0); Immature Granulocyte Absolute 0.03 K/mm3 (0.00-0.031); Immature Granulocyte Percent A 0.5 % (0-0.5); Lymphocytes Absolute Auto 2.07 K/mm3 (0.9-3.2); Mean Corpuscular HGB Conc 31.9 g/dl (32-36); Mean Corpuscular Hemoglobin 32.5 pg (26-34); Mean Corpuscular Volume 102.2 fl (80-100); Mean Platelet Volume 12.9 fl (7.4-10.4); Monocytes Absolute Auto 0.7 K/mm3 (0.1-0.6); Neutrophils Absolute Auto 3.3 K/mm3 (1.3-6.7); Neutrophils Percent Auto 52.5 % (45.5-73.1); Platelet Count Result 166 k/mm3 (150-375); Red Cell Distribution Width 11.5 % (11.5-14.5); White Blood Count 6.3 K/mm3 (4.5-10.0)
[2024-12-31 19:27] LABS: Alanine Aminotransferase 17 U/L (6-50); Albumin Level 4.5 g/dL (3.5-5.1); Alkaline Phosphatase 96 U/L (38-126); Anion Gap 7 mmol/L (4-12); Aspartate Amino Transferase 29 U/L (17-59); Bilirubin,Total 0.9 mg/dL (0.2-1.3); Blood Urea Nitrogen 27 mg/dL (9-20); Calcium 9.4 mg/dL (8.4-10.2); Carbon Dioxide 34 mmol/L (22-30); Chloride 100 mmol/L (98-107); Cholesterol 117 mg/dL (0-200); Estimated Glomerular Filt Rate > 60; Glucose 103 mg/dL (65-110); HDL Direct 45 mg/dL; Sodium 141 mmol/L (137-145); Triglycerides 38 mg/dL (<150)
[2024-12-31 19:38] LABS: LDL Cholesterol Direct 62 mg/dL
[2024-12-31 20:13] LABS: Vitamin D 25 Hydroxy 79.4 ng/mL
[2024-12-31 20:27] LABS: Thyroid Stimulating Hormone Reflex 0.901 uIU/mL (0.465-4.68)
[2024-12-31 20:48] LABS: Hemoglobin A1C 5.8 % (<5.7)
== END 2024-12-31 13:53 | disposition home or self-care (01) ==
LOC: ANHGOSHLAB 13:52
PROVIDERS: PCP Family Medicine; Visit Provider Family Medicine
DX: R73.03 Prediabetes (principal); G20.A1 Parkinson's disease without dyskinesia, without mention of fluctuations; Z00.00 Encounter for general adult medical examination without abnormal findings; F03.90 Unspecified dementia, unspecified severity, without behavioral disturbance, psychotic disturbance, mood disturbance, and anxiety; E55.9 Vitamin D deficiency, unspecified; E78.5 Hyperlipidemia, unspecified; E53.8 Deficiency of other specified B group vitamins; Z12.5 Encounter for screening for malignant neoplasm of prostate
CPT/HCPCS: 36415; 80053; 80061; 82306; 82607; 83036; 84443; 85025

== ENCOUNTER 2025-08-16 13:45 | Emergency (ER) | payer MEDICARE, SELFPAY ==
--- NOTE | 2025-08-16 13:52 | ED.UPPEXIN ---
HPI - Extremity Injury (Upper) General Chief Complaint: Extremity Injury, Upper Stated Complaint: Shoulder Pain/Headache Time Seen by Provider: 08/16/25 14:00 Source: patient and RN notes reviewed Mode of arrival: ambulatory Limitations: no limitations History of Present Illness HPI narrative: 70-year-old male presents with concern for falling prior to arrival. He reports he hit his head on the wood floor. He also reports his left shoulder and flank are hurting. He has urinated since this fall and has not noticed any blood in his urine. He does feel slightly nauseated and lightheaded, he has not vomited. Patient has a history of Parkinson's disease Related Data Home Medications ?Medication ?Instructions ?Recorded ?Confirmed ?Last Taken ?Type carbidopa 25 mg-levodopa 100 mg 1.5 tablet PO TID 06/23/21 12/31/24 Unknown History tablet safinamide 100 mg tablet 100 mg PO HS 06/23/21 12/31/24 Unknown History aspirin 81 mg tablet,delayed 81 mg PO DAILY 12/25/23 12/31/24 Unknown History release clonazepam 0.5 mg tablet 0.25 mg PO BID 12/25/23 12/31/24 Unknown History rivastigmine tartrate 3 mg capsule 3 mg PO BID 06/24/24 12/31/24 Unknown History Allergies Allergy/AdvReac Type Severity Reaction Status Date / Time bee pollen Allergy Unknown Unknown Verified 08/16/25 13:59 muscle relaxers AdvReac Severe Hallucinati Uncoded 12/31/24 13:01 ng Review of Systems Review of Systems: CONSTITUTIONAL: Denies malaise, chills, sweats, or fever. SKIN: Denies open skin, laceration, abrasion, redness, warmth, swelling. ABD: Reports nausea MUSCULOSKELETAL: Reports left shoulder and flank pain NEUROLOGIC: Reports headache and lightheadedness All systems reviewed & are unremarkable except as noted in HPI and below PMFSH Past Medical History Medical History Seasonal allergies Dementia Vitamin B12 deficiency Fracture of left clavicle Vitamin D deficiency COVID-19 (~09/2021) BPH w/o urinary obs/LUTS CAD in [place] artery Dyslipidemia Parkinsons disease Prediabetes Surgical History Surgical History History of foot surgery (~2005) Right for bone spur excision History of elbow surgery (~1999) right elbow surgery for ruptured tendon repair History of tonsillectomy (~1959) History of cervical spinal surgery (~2006) S/P deep brain stimulator placement (~2018) History of coronary artery bypass graft (~2009) Family History Family History Other Diabetes mellitus Family history of coronary artery disease Hypertension Social History Social History Smoking packs per day: 0.75 Smoking cigarettes per day: 15.0 Years smoked: 40 Smoking pack-years: 30.00 Smoking status: Current every day smoker Tobacco type: cigarettes Alcohol intake: current Alcohol use details: seldom Substance use: never Substance use type: does not use Lack of Transportation: YES Lack of Food: Never True Current Housing: I Have Housing Concerned About Future Housing: No Difficulty Paying Gas/Electric Bills: No Difficulty Paying for Meds: No Currently Unemployed: No Education: Trade/Vocational Certificate Difficulty w/ Childcare or Family Care: No Living arrangements: with family Occupation/Education: retired Gender identity (if verbalized by the patient): Male Agree to blood products: Yes Comments At time of signature, agree with nursing past medical, surgical, social and family history. There is no relevant family history pertinent to the presenting complaint Exam Narrative: GENERAL: Well-appearing and in no acute distress. HEAD: Normocephalic, atraumatic. EYES: PERRLA, sclera clear, and EOMI. ENT: Nares clear. Mucous membranes moist. NECK: Supple CHEST: No respiratory distress. Clear to auscultation. No bony deformities, no asymmetry. Speaks in full sentences. HEART: Regular rate and rhythm. SKIN: Warm, dry, no visible rash. NEURO: Alert and oriented x3. No focal deficits. PSYCH: Normal mood and affect Course Course Emergency Course: Patient is aware of diagnosis, understands and agrees to treatment plan. Anticipatory guidance given. Patient agrees to follow-up as directed and is aware of reasons to seek care at the emergency department. Portions of this record may have been created with voice recognition software Level of Care: Express Care Visit Vital Signs Vital signs: Reviewed. Transfer Transfered to: [facility] Transportation: Other (Private ) Transfer rationale: Head injury Accepting physician: Lyle MDM - Extremity Injury (Upper) MDM Narrative Medical decision making narrative: Patient is nontoxic appearing and in no acute distress Critical Care Time Critical Care Time Critical Care Time: No Discharge Plan Discharge Clinical Impression: Head injury, Acute shoulder pain Patient Disposition: Acute Care Hospital Condition: Stable Patient Language: Chinese Prescriptions: No Action carbidopa-levodopa 25-100 mg tablet 1.5 tablet PO TID Xadago 100 mg tablet 100 mg PO HS clonazepam 0.5 mg tablet 0.25 mg PO BID aspirin 81 mg tablet,delayed release (DR/EC) 81 mg PO DAILY loratadine [Claritin] 10 mg tablet 10 mg PO DAILY Qty: 90 1RF olopatadine [Pataday Once Daily Relief] 0.2 % drops 1 drp EACH EYE DAILY PRN (Reason: itching) Qty: 2.5 1RF rivastigmine tartrate 3 mg capsule 3 mg PO BID cyanocobalamin (vitamin B-12) 1,000 mcg tablet, sublingual 1,000 mcg sublingual DAILY Qty: 90 2RF cholecalciferol (vitamin D3) 50 mcg (2,000 unit) tablet 50 mcg PO DAILY Qty: 90 3RF atorvastatin 20 mg tablet 20 mg PO DAILY Qty: 90 1RF Follow-up/Referrals: Ramírez Alexander MD [Primary Care Provider, Family Practice] Time of Disposition: 14:16
[2025-08-16 13:53] VITALS: BP 135/82; PULSE 79; RESP 16; TEMP 36.5; O2SAT 100
== END 2025-08-16 14:12 | disposition short-term general hospital (02) ==
PROVIDERS: Emergency Provider Nurse Practitioner; PCP Family Medicine
DX: S09.90XA Unspecified injury of head, initial encounter (principal); W19.XXXA Unspecified fall, initial encounter; M25.512 Pain in left shoulder; G20.A1 Parkinson's disease without dyskinesia, without mention of fluctuations; F03.90 Unspecified dementia, unspecified severity, without behavioral disturbance, psychotic disturbance, mood disturbance, and anxiety; N40.0 Benign prostatic hyperplasia without lower urinary tract symptoms; I25.10 Atherosclerotic heart disease of native coronary artery without angina pectoris; E78.5 Hyperlipidemia, unspecified; R73.03 Prediabetes; E53.8 Deficiency of other specified B group vitamins; E55.9 Vitamin D deficiency, unspecified; F17.210 Nicotine dependence, cigarettes, uncomplicated; Z95.1 Presence of aortocoronary bypass graft; Z79.82 Long term (current) use of aspirin
CPT/HCPCS: 99212; 99213; G0463

== ENCOUNTER 2025-08-16 14:32 | Emergency (ER) | payer MEDICARE, SELFPAY ==
--- NOTE | ~2025-08-16 | CT_ITS ---
EXAMINATION: CT thoracic spine wo con COMPARISON: None HISTORY: fall, upper back pain TECHNIQUE: Axial images were obtained through the spine without IV contrast. Coronal, sagittal reconstruction images were obtained from the axial views. CT scan performed using dose optimization techniques including the following automated exposure control; adjustment of mA and/or kV; use of iterative reconstruction technique. Automatic exposure control was used to reduce radiation dose. Permanent radiation dose record is archived to PACS. FINDINGS: The vertebral heights are intact. No fracture or subluxation. The disc heights are intact. Soft tissues demonstrate partially imaged large left renal calculus measuring 2.5 x 2 cm with moderate left hydronephrosis incompletely evaluated. Impression: 1. No acute fracture. Left-sided obstructive uropathy. Dedicated CT recommended Reviewed, dictated and finalized at location P. IDE SALES ACCOUNT REPRESENTATIVE Impression: 1. No acute fracture. Left-sided obstructive uropathy. Dedicated CT recommended
--- NOTE | ~2025-08-16 | CT_ITS ---
EXAMINATION: CT brain wo con, 08/16/2025 14:45 MEDICAL ARTIST HISTORY: HI, possible LOC COMPARISON: No comparisons available. Technique: Axial images obtained of the brain without contrast. One or more of the following dose reduction techniques were used: automated exposure control, adjustment of the mA and/or kV according to patient size, use of iterative reconstruction technique. Findings: Right-sided brain stimulator lead noted terminating in the right basal ganglia, no acute infarct or hemorrhage, no midline shift or mass effect. No extra-axial fluid collections. Mastoid air cells unremarkable. Sinuses and orbits unremarkable. No acute fracture. No significant facial or scalp soft tissue swelling evident. No radiopaque foreign body is seen. Impression: 1.No acute intracranial abnormality. Reviewed, dictated and finalized at location P. CAL ARTIST Impression: 1.No acute intracranial abnormality.
--- NOTE | ~2025-08-16 | CT_ITS ---
EXAMINATION: CT cervical spine wo con COMPARISON: None HISTORY: HI, possible LOC TECHNIQUE: Axial images were obtained through the spine without IV contrast. Coronal, sagittal reconstruction images were obtained from the axial views. CT scan performed using dose optimization techniques including the following automated exposure control; adjustment of mA and/or kV; use of iterative reconstruction technique. Automatic exposure control was used to reduce radiation dose. Permanent radiation dose record is archived to PACS. FINDINGS: Grade 1 anterolisthesis of C3 on C4, no fracture. Anterior fixation of C5 and C6, the hardware is intact, no acute fracture is identified. Moderate loss of disc height at C3-4 C4-5 and moderate canal and foraminal stenosis. Soft tissues unremarkable. Impression: No acute abnormality. Reviewed, dictated and finalized at location P. ING SPECIALIST Impression: No acute abnormality.
--- NOTE | ~2025-08-16 | CT_ITS ---
EXAMINATION: CT abdomen pelvis wo con DATE: 08/16/2025 15:52 INDICATION: Left flank pain and low back pain post fall TECHNIQUE: Computed tomography (CT) of the abdomen and pelvis was performed without intravenous contrast. Automated exposure control and iterative reconstruction technique were employed. The dose-length product was 587.07 mGy-cm. COMPARISON: 09/12/2012 FINDINGS: Mild dependent atelectasis in bilateral lower lobes. Heart size normal. Atherosclerotic coronary artery calcifications unchanged prior median sternotomy and coronary artery bypass grafting. No pericardial or pleural effusion. Several small high attenuation gallstones in the otherwise normal gallbladder. Multiple splenic calcific lesions consistent with old granulomatous disease. 2.5 cm stone at the left ureteropelvic junction with moderate left hydronephrosis. Liver, pancreas, bilateral adrenal glands and right kidney are normal. 9 mm high attenuation proteinaceous/hemorrhagic cyst along the periphery of a more typical 2.8 cm low-attenuation exophytic cyst at the upper pole the left kidney. Moderat e diverticulosis with sigmoid predominance without adjacent from trace stranding to suggest diverticulitis. Few tiny calcified appendicoliths within the normal appendix with no periappendiceal obtained from trace stranding to suggest acute appendicitis. Mild prostatomegaly measuring 4.5 x 3.2 cm. Bladder is normal. No free intraperitoneal gas or fluid. No pathologically enlarged abdominal or pelvic lymphadenopathy. There is calcified atherosclerosis of the aorta and many of the other arteries. Fusiform aneurysm of the right common iliac artery which measures up to 2.4 x 2.1 cm in maximal diameter. Mild to moderate lumbar spondylosis. No acute osseous abnormality. IMPRESSION: 1. Obstructing 2.5 cm stone at the left ureteropelvic junction with moderate left hydronephrosis. 2. Cholelithiasis. 3. Moderate diverticulosis. 4. 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 Reviewed, dictated and finalized at location A. WAXER IMPRESSION: 1. Obstructing 2.5 cm stone at the left ureteropelvic junction with moderate le ft hydronephrosis. 2. Cholelithiasis. 3. Moderate diverticulosis. 4. 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
[2025-08-16 15:15] VITALS: BP 120/66; PULSE 80; RESP 18; TEMP 36.3; O2SAT 99
--- NOTE | 2025-08-16 15:19 | ED.HEATRA ---
HPI - Head Injury General Chief complaint: Head Injury Stated complaint: hit head today. ? LOC Time Seen by Provider: 08/16/25 15:20 Focused HPI: Patient is a 70-year-old male, with past medical history of Parkinson's disease, who presents the ED with report of a fall. Patient reports he lost his balance and fell this morning. He hit his head on the right-sided his face. He believes he may have lost consciousness briefly. Is not on any blood thinners. Went to an urgent care and was sent here for further evaluation. Also reports pain throughout his upper back between his shoulder blades, and in his left kidney region. Denies dizziness, lightheadedness, vision changes, numbness/weakness. GENERAL: Well-appearing, well-nourished, and in no acute distress. HEAD: Normocephalic, atraumatic. No swelling or bruising. NECK: Mild diffuse tenderness throughout cervical region. No palpable bony deformities. CHEST: Clear to auscultation. ?No respiratory distress. HEART: Regular rate and rhythm.? MSK: Tenderness to palpation throughout upper thoracic region between the scapulas. Mild tenderness palpation left CVA region, diffusely throughout lumbar region. NEURO: ?Alert and oriented x3. Patient screened in triage and initial orders placed.? ?Additional care and disposition to be based upon?diagnostic testing and treatment. Source: patient Mode of arrival: ambulatory Limitations: no limitations Related Data Home Medications ?Medication ?Instructions ?Recorded ?Confirmed ?Last Taken ?Type carbidopa 25 mg-levodopa 100 mg 1.5 tablet PO TID 06/23/21 12/31/24 Unknown History tablet safinamide 100 mg tablet 100 mg PO HS 06/23/21 12/31/24 Unknown History aspirin 81 mg tablet,delayed 81 mg PO DAILY 12/25/23 12/31/24 Unknown History release clonazepam 0.5 mg tablet 0.25 mg PO BID 12/25/23 12/31/24 Unknown History rivastigmine tartrate 3 mg capsule 3 mg PO BID 06/24/24 12/31/24 Unknown History Allergies Allergy/AdvReac Type Severity Reaction Status Date / Time bee pollen Allergy Unknown Unknown Verified 08/16/25 14:34 [facility] Past Medical History Medical History Seasonal allergies Dementia Vitamin B12 deficiency Fracture of left clavicle Vitamin D deficiency COVID-19 (~09/2021) BPH w/o urinary obs/LUTS CAD in [place] artery Dyslipidemia Parkinsons disease Prediabetes Surgical History Surgical History History of foot surgery (~2005) Right for bone spur excision History of elbow surgery (~1999) right elbow surgery for ruptured tendon repair History of tonsillectomy (~1959) History of cervical spinal surgery (~2006) S/P deep brain stimulator placement (~2018) History of coronary artery bypass graft (~2009) Family History Family History Other Diabetes mellitus Family history of coronary artery disease Hypertension Social History Social History Smoking packs per day: 0.75 Smoking cigarettes per day: 15.0 Years smoked: 40 Smoking pack-years: 30.00 Smoking status: Current every day smoker Tobacco type: cigarettes Alcohol intake: current Alcohol use details: seldom Substance use: never Substance use type: does not use Lack of Transportation: YES Lack of Food: Never True Current Housing: I Have Housing Concerned About Future Housing: No Difficulty Paying Gas/Electric Bills: No Difficulty Paying for Meds: No Currently Unemployed: No Education: Trade/Vocational Certificate Difficulty w/ Childcare or Family Care: No Living arrangements: with family Occupation/Education: retired Gender identity (if verbalized by the patient): Male Agree to blood products: Yes Course Vital Signs Vital signs: Vital Signs Temperature 97.3 F L 08/16/25 15:15 Pulse Rate 80 08/16/25 15:15 Respiratory Rate 18 08/16/25 15:15 Blood Pressure 120/66 08/16/25 15:15 Pulse Oximetry 99 08/16/25 15:15 Oxygen Delivery Room Air 08/16/25 15:15 Temperature 97.3 F L 08/16/25 15:15 Pulse Rate 66 08/16/25 17:29 Respiratory Rate 19 08/16/25 17:29 Blood Pressure 154/74 H 08/16/25 17:29 Pulse Oximetry 98 08/16/25 17:29 Oxygen Delivery Room Air 08/16/25 15:15 MDM - Head Injury MDM Narrative Medical decision making narrative: MSE by ISAIAH in triage. Patient left after initial MSE in triage without further workup for care. Lab Data 08/16/25 17:42 08/16/25 17:42 Labs: Lab Results 08/16/25 08/16/25 Range/Units 17:42 17:48 WBC 8.6 (4.5-10.0) K/mm3 RBC 5.05 (4.6-6.20) M/mm3 Hgb 16.7 (14.0-18.0) g/dL Hct 50.2 (42.0-52.0) % MCV 99.4 (80-100) fl MCH 33.1 (26-34) pg MCHC 33.3 (32-36) g/dl RDW 11.5 (11.5-14.5) % Plt Count 175 (150-375) k/mm3 MPV 11.2 H (7.4-10.4) fl Immature Gran % (Auto) 0.2 (0-0.5) % Neut % (Auto) 51.3 (45.5-73.1) % Lymph % (Auto) 35.3 (18.3-44.2) % Harrison % (Auto) 10.3 H (2.6-8.5) % Eos % (Auto) 2.3 (0-4.4) % Baso % (Auto) 0.6 (0.2-1.2) % Lymph # (Auto) 3.05 (0.9-3.2) K/mm3 Harrison # (Auto) 0.9 H (0.1-0.6) K/mm3 Eos # (Auto) 0.2 (0-0.3) K/mm3 Baso # (Auto) 0.1 (0.0-0.1) K/mm3 Abs Immat Gran (auto) 0.02 (0.00-0.031) K/mm3 Absolute Neuts (auto) 4.4 (1.3-6.7) K/mm3 Absolute Nucleated RBC 0.000 (0.0-0.012) K/mm3 Nucleated RBC % 0.0 (0.0-0.2) % Sodium 139 (137-145) mmol/L Potassium 4.1 (3.4-5.0) mmol/L Chloride 100 (98-107) mmol/L Carbon Dioxide 31 H (22-30) mmol/L Anion Gap 8 (4-12) mmol/L BUN 22 H (9-20) mg/dL Creatinine 1.04 (0.7-1.3) mg/dL Estim Creat Clear Calc 55 ml/min Estimated GFR > 60 (59 - ) Glucose 89 (65-110) mg/dL Calcium 9.6 (8.4-10.2) mg/dL Total Bilirubin 0.5 (0.2-1.3) mg/dL AST 23 (17-59) U/L ALT 11 (6-50) U/L Alkaline Phosphatase 101 (38-126) U/L Total Protein 8.3 H (6.3-8.2) g/dL Albumin 4.8 (3.5-5.1) g/dL Urine Color Yellow (Yellow) Urine Appearance Clear (Clear) Urine pH 5.5 (5.0-9.0) Ur Specific [place] 1.026 (1.001-1.035) Urine Protein 2+ H (Negative) mg/dL Urine Glucose (UA) Negative (Negative) mg/dL Urine Ketones Trace H (Negative) mg/dL Ur Blood (Man) 2+ H (Negative) Urine Nitrate Negative (Negative) Urine Bilirubin Negative (Negative) Urine Urobilinogen 1.0 (<2.0) mg/dL Leukocyte Esterase Rfl 1+ H (Negative) WILMER/UL Urine RBC 21-50 H (0-2) /hpf Urine WBC 11-20 H (0-3) /hpf Ur Squamous Epith Cells None seen (Few) /hpf Urine Bacteria None seen /hpf Urine Casts 0-2 Discharge Plan Discharge Clinical Impression: Closed head injury, Fall from ground level, Left flank pain Patient Disposition: Elopement After Seen by Prov Patient Language: Amharic Prescriptions: No Action carbidopa-levodopa 25-100 mg tablet 1.5 tablet PO TID Xadago 100 mg tablet 100 mg PO HS clonazepam 0.5 mg tablet 0.25 mg PO BID aspirin 81 mg tablet,delayed release (DR/EC) 81 mg PO DAILY loratadine [Claritin] 10 mg tablet 10 mg PO DAILY Qty: 90 1RF olopatadine [Pataday Once Daily Relief] 0.2 % drops 1 drp EACH EYE DAILY PRN (Reason: itching) Qty: 2.5 1RF rivastigmine tartrate 3 mg capsule 3 mg PO BID cyanocobalamin (vitamin B-12) 1,000 mcg tablet, sublingual 1,000 mcg sublingual DAILY Qty: 90 2RF cholecalciferol (vitamin D3) 50 mcg (2,000 unit) tablet 50 mcg PO DAILY Qty: 90 3RF atorvastatin 20 mg tablet 20 mg PO DAILY Qty: 90 1RF Follow-up/Referrals: Ramírez Alexander MD [Primary Care Provider, Family Practice]
--- NOTE | 2025-08-16 17:15 | PC.NURSE ---
Pt called for repeat vital signs, no answer
[2025-08-16 17:29] VITALS: BP 154/74; PULSE 66; RESP 19; O2SAT 98
[2025-08-16 17:58] LABS: Hematocrit 50.2 % (42.0-52.0); Hemoglobin 16.7 g/dL (14.0-18.0); Immature Granulocyte Percent A 0.2 % (0-0.5); Lymphocytes Absolute Auto 3.05 K/mm3 (0.9-3.2); Mean Corpuscular HGB Conc 33.3 g/dl (32-36); Mean Corpuscular Hemoglobin 33.1 pg (26-34); Mean Corpuscular Volume 99.4 fl (80-100); Nucleated Red Blood Cells Absolute Auto 0.000 K/mm3 (0.0-0.012); Nucleated Red Blood Cells Perc 0.0 % (0.0-0.2); Platelet Count Result 175 k/mm3 (150-375); Red Blood Count 5.05 M/mm3 (4.6-6.20); White Blood Count 8.6 K/mm3 (4.5-10.0)
[2025-08-16 18:20] LABS: Alanine Aminotransferase 11 U/L (6-50); Albumin Level 4.8 g/dL (3.5-5.1); Alkaline Phosphatase 101 U/L (38-126); Anion Gap 8 mmol/L (4-12); Aspartate Amino Transferase 23 U/L (17-59); Bilirubin,Total 0.5 mg/dL (0.2-1.3); Blood Urea Nitrogen 22 mg/dL (9-20); Calcium 9.6 mg/dL (8.4-10.2); Carbon Dioxide 31 mmol/L (22-30); Chloride 100 mmol/L (98-107); Estimated CRCL calculation 55 ml/min; Estimated Glomerular Filt Rate > 60; Glucose 89 mg/dL (65-110); Potassium 4.1 mmol/L (3.4-5.0); Sodium 139 mmol/L (137-145); Total Protein 8.3 g/dL (6.3-8.2)
[2025-08-16 18:24] LABS: Add Urine Microscopic? YES; Appearance Urine Clear (Clear); Glucose Urine UA Negative (Negative); Leukocyte Esterase Ur 1+ LEU/UL (Negative); Nitrate Urine Negative (Negative); Non Pathogenic Casts 0-2; Specific Grav Ur 1.026 (1.001-1.035)
--- NOTE | 2025-08-16 18:44 | PC.NURSE ---
PT and approached intake desk requesting IV removal so they could leave
== END 2025-08-16 18:46 | disposition left against medical advice (07) ==
LOC: ANHED 15:56
PROVIDERS: Emergency Provider Physician Assistant; PCP Family Medicine
DX: S09.90XA Unspecified injury of head, initial encounter (principal); R10.A2 Flank pain, left side; I25.10 Atherosclerotic heart disease of native coronary artery without angina pectoris; E53.8 Deficiency of other specified B group vitamins; E55.9 Vitamin D deficiency, unspecified; E78.5 Hyperlipidemia, unspecified; G20.A1 Parkinson's disease without dyskinesia, without mention of fluctuations; R73.03 Prediabetes; F17.210 Nicotine dependence, cigarettes, uncomplicated; Z95.1 Presence of aortocoronary bypass graft; Z96.82 Presence of neurostimulator; Z86.16 Personal history of COVID-19; W18.39XA Other fall on same level, initial encounter
CPT/HCPCS: 36415; 70450; 72125; 72128; 74176; 80053; 81001; 85025; 87086; 99284

== ENCOUNTER 2025-08-18 14:59 | Outpatient (CLI) | payer MEDICARE, SELFPAY ==
--- NOTE | ~2025-08-18 | XR_ITS ---
EXAMINATION: Lumbosacral spine complete including standing AP and lateral views: DATE: 08/18/2025 INDICATION: Chronic low back pain TECHNIQUE: Standing AP, lateral view oblique views and Spot film were obtained. COMPARISON: CT scan dated 08/16/2025 abdomen and pelvis. FINDINGS: No acute bony lesions. Significant degenerative disc disease with facet arthropathy and minimal retrolisthesis at L5-S1 level. Degenerative disc disease and minimal anterolisthesis at L3-4 level and degenerative disc changes at L4-5 level. Large calcific density in the projection of left renal pelvis consistent with CT findings. Calcific atherosclerotic changes of abdominal aorta with mild aneurysm of the distal aorta, also consistent with CT findings. IMPRESSION: 1. 1. Degenerative disc changes and facet arthropathy as described above at L3-4, L4-5 and L5-S1 levels. Minimal retrolisthesis at L5-S1 level and minimal anterolisthesis at L3-4 level. 2. Large calculus in the left paravertebral region consistent with renal pelvic calculus noted on CT scan. 3. Calcific changes of aorta and iliac arteries with mild aneurysm of distal abdominal aorta. Aneurysmal dilation of the common iliac arteries also are noted. Reviewed, dictated and finalized at location T. L ENGINEERING SPECIALIST IMPRESSION: 1. 1. Degenerative disc changes and facet arthropathy as described above at L3-4, L4-5 and L5-S1 levels. Minimal retrolisthesis at L5-S1 level and minimal maria teresa listhesis at L3-4 level. 2. Large calculus in the left paravertebral region consistent with renal pelvic calculus noted on CT scan. 3. Calcific changes of aorta and iliac arteries with mild aneurysm of distal ab dominal aorta. Aneurysmal dilation of the common iliac arteries also are noted.
--- NOTE | ~2025-08-18 | XR_ITS ---
EXAMINATION: XR shoulder RT min 2V DATE: 08/18/2025 15:37 INDICATION: Right shoulder pain TECHNIQUE: AP internally and externally rotated, AP oblique externally rotated and transscapular Y views of the right shoulder were obtained. COMPARISON: None FINDINGS: Normal alignment. No fracture.Mild glenohumeral and acromioclavicular osteoarthritis. Calcified right hilar lymph nodes consistent with old granulomatous disease. Visualized portion of the lungs are clear. Stimulator lead extends from a left pectoral supply cephalad along the anterior right neck. Median sternotomy wires and mediastinal surgical clips are seen, likely from prior coronary artery bypass grafting. IMPRESSION: Mild right acromioclavicular and glenohumeral osteoarthritis. Reviewed, dictated and finalized at location A. RHANGER PIPE
== END 2025-08-18 15:00 | disposition home or self-care (01) ==
LOC: GOSHIMG 15:00
PROVIDERS: PCP Family Medicine; Visit Provider Family Medicine
DX: M19.011 Primary osteoarthritis, right shoulder (principal); Z91.81 History of falling; M54.50 Low back pain, unspecified; G89.29 Other chronic pain
CPT/HCPCS: 72110; 73030